=== PATIENT | female | born 2000 | race Caucasian/White ===

== ENCOUNTER 2022-10-23 16:34 | Emergency (ER) | payer MEDICAID, SELFPAY ==
--- NOTE | ~2022-10-23 | XR_ITS ---
XR knee RT min 4V DATE: 10/23/2022 18:00 INDICATION: Pain for 3 days. No known injury. TECHNIQUE: 4 views COMPARISON: None FINDINGS: No fracture or dislocation or joint effusion. No periosteal reaction or bone destruction. J oint spaces are preserved. No radiopaque intra-articular loose body or chondrocalcinosis. IMPRESSION: Negative Reviewed, dictated and finalized at location A. IMPRESSION: Negative
[2022-10-23 16:35] VITALS: BP 104/62; PULSE 66; RESP 16; TEMP 36.8; O2SAT 100
[2022-10-23 19:18] VITALS: BP 126/76; PULSE 70; RESP 18; O2SAT 98
--- NOTE | 2022-10-23 19:52 | ED.LOWEXIN ---
HPI - Extremity Injury (Lower) General Chief Complaint: Extremity Injury, Lower Stated Complaint: RIGHT KNEE INJURY Time Seen by Provider: 10/23/22 19:33 Source: patient and RN notes reviewed Mode of arrival: ambulatory Limitations: no limitations History of Present Illness HPI Narrative: This is a 21 year old female with history of knee tendonitis who presents for evaluation of right knee pain. She noticed mild right knee pain last Wednesday while working. 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 She reports she started applying ice and wearing knee immobilizer, and her pain improved. She states today her significant other asked her to straighten her right leg at the knee and she had worsening pain. Her pain is located lateral anterior knee. She denies calf pain . She denies swelling or redness. She has not taken any medication for her pain. Related Data Allergies Allergy/AdvReac Type Severity Reaction Status Date / Time No Known Allergies Allergy Verified 10/23/22 19:18 Review of Systems Review of Systems: All systems reviewed & are unremarkable except as noted in HPI and below PMFSH Past Medical History Medical History (Updated 10/23/22 @ 20:01 by Joan Muñoz MD) Tendonitis Surgical History Surgical History (Updated 10/23/22 @ 19:57 by Joan Muñoz MD) No pertinent past surgical history Social History Social History (Updated 10/23/22 @ 19:58 by Joan Muñoz MD) Smoking status: Never smoker Exam Const: General: no acute distress and alert Nutritional Appearance: well nourished Orientation/consciousness: patient oriented x3 Limitations: no limitations HENMT: Head: normal to inspection Eyes: EOM: EOMs intact bilaterally Resp: Effort & Inspection: normal respiratory effort Skin: General skin exam: normal color Rashes: no rashes Wounds: no wounds Neuro: General: patient oriented x3 and moves all extremities Extrem: Other: right anterior knee pain, no swelling, no increased warmth, no redness. pain with extension of knee Psych: Mental Status: mental status grossly normal Affect: normal affect Attitude: cooperative Course Reevaluation(s) Reevaluation #1: I Discussed with patient that knee xray did not show any thing acute. I Discussed management with NSAIDS , knee brace and she will need to follow up with PCP. Date: 10/23/22 Time: 19:59 Vital Signs Vital signs: Vital Signs Temperature 98.3 F 10/23/22 16:35 Pulse Rate 66 10/23/22 16:35 Respiratory Rate 16 10/23/22 16:35 Blood Pressure 104/62 10/23/22 16:35 Pulse Oximetry 100 10/23/22 16:35 Temperature 98.3 F 10/23/22 16:35 Pulse Rate 70 10/23/22 19:18 Respiratory Rate 18 10/23/22 19:18 Blood Pressure 126/76 10/23/22 19:18 Pulse Oximetry 98 10/23/22 19:18 MDM - Extremity Injury (Lower) Imaging Data Radiologist's impression: ITS Impressions Knee X-Ray 10/23/22 18:09 IMPRESSION: Negative Discharge Plan Discharge Clinical Impression: Acute pain of right knee Patient Disposition: Home, Self-Care Condition: Stable Instructions: Antibiotic Form, Knee Pain (ED) Additional Instructions: wear your knee brace for comfort. Take naproxen, aleve or ibuprofen for your pain. Follow up with your primary care provider for further care of your knee Prescriptions: New naproxen 375 mg tablet 375 mg PO BID PRN (Reason: pain) Qty: 14 0RF Follow-up/Referrals: Keyana Messina MD [Physician] -
== END 2022-10-23 20:17 | disposition home or self-care (01) ==
PROVIDERS: Emergency Provider General Practice
DX: M25.561 Pain in right knee (principal)
CPT/HCPCS: 73564; 99283

== ENCOUNTER 2023-07-28 17:42 | Emergency (ER) | payer SELFPAY ==
[2023-07-28 17:54] VITALS: BP 106/64; PULSE 129; RESP 16; TEMP 37.1; O2SAT 98
--- NOTE | 2023-07-28 18:10 | ED.EAR ---
HPI - Ear Problem General Chief complaint: Ear Stated complaint: Right Ear Irritation Time Seen by Provider: 07/28/23 18:15 Source: patient and RN notes reviewed Mode of arrival: ambulatory Limitations: no limitations History of Present Illness HPI Narrative: 22-year-old female presents concern for your pain on the right side. Reports that she had been sick for about 1-2 weeks of nasal congestion and rhinorrhea which has mostly does resolved but now she has right ear pain. Reports she has been taking DayQuil and Mucinex MD Complaint: ear pain Related Data Allergies Allergy/AdvReac Type Severity Reaction Status Date / Time No Known Allergies Allergy Verified 07/28/23 18:06 Review of Systems Review of Systems: CONSTITUTIONAL: Denies malaise, chills, sweats, or fever. EYES: Denies visual changes, redness, or discharge. ENT: Denies rhinorrhea, congestion, sinus pain, and sore throat. Reports right ear pain CARDIOVASCULAR: Denies chest pain, palpitations, or edema. RESPIRATORY: Denies cough. Denies dyspnea. GASTROINTESTINAL: Denies abdominal pain, nausea, vomiting, diarrhea SKIN: Denies rash or itching. MUSCULOSKELETAL: Denies myalgia. NEUROLOGIC: Denies headache. All systems reviewed & are unremarkable except as noted in HPI and below PMFSH Past Medical History Medical History (Updated 07/28/23 @ 18:22 by Magy Crowell NP) Tendonitis Surgical History Surgical History (Updated 10/23/22 @ 19:57 by Joan Muñoz MD) No pertinent past surgical history Social History Social History (Updated 10/23/22 @ 19:58 by Joan Muñoz MD) Smoking status: Never smoker Comments At time of signature, agree with nursing past medical, surgical, social and family history. There is no relevant family history pertinent to the presenting complaint Exam Narrative: GENERAL: Well-appearing, well-nourished, and in no acute distress. HEAD: Normocephalic EYES: PERRLA, conjunctivae clear ENT: Nares clear. Mucous membranes moist. TM pearly swenson with dull light reflex on the left, erythematous and bulging on the right; no tragal tenderness. Oropharynx not erythematous without lesions. Tonsils not enlarged and without exudate, no drooling, no hoarseness, no trismus, uvula midline. NECK: Supple. No lymphadenopathy CHEST: Clear to auscultation, breath sounds equal. No wheezing, rhonchi, rales, or stridor. No respiratory distress, speaks in full sentences. HEART: Regular rate and rhythm. No murmur heard. SKIN: Warm, dry, no rash. NEURO: Alert and oriented x3. PSYCH: Normal mood and affect Course Course Emergency Course: Patient is aware of diagnosis, understands and agrees to treatment plan. Anticipatory guidance given. Patient agrees to follow-up as directed and is aware of reasons to seek care at the emergency department. Portions of this record may have been created with voice recognition software Level of Care: Express Care Visit Vital Signs Vital signs: Vital Signs Temperature 98.8 F 07/28/23 17:54 Pulse Rate 129 H 07/28/23 17:54 Respiratory Rate 16 07/28/23 17:54 Blood Pressure 106/64 07/28/23 17:54 Pulse Oximetry 98 07/28/23 17:54 Oxygen Delivery Room Air 07/28/23 17:54 Temperature 98.8 F 07/28/23 17:54 Pulse Rate 129 H 07/28/23 17:54 Respiratory Rate 16 07/28/23 17:54 Blood Pressure 106/64 07/28/23 17:54 Pulse Oximetry 98 07/28/23 17:54 Oxygen Delivery Room Air 07/28/23 17:54 Reviewed. Medical Decision Making MDM Narrative Medical decision making narrative: Differential diagnosis considered: Prather virus, strep pharyngitis, allergic rhinitis, upper respiratory tract infection, sinusitis, rhinosinusitis, nasopharyngitis. viral pharyngitis, otitis media, otitis externa, otitis effusion, cerumen impaction, foreign body. Exam findings show no acute concerns or changes; patient is non-toxic appearing and is in no distress. Patient is appropriate for outpatient
== END 2023-07-28 18:30 | disposition home or self-care (01) ==
PROVIDERS: Emergency Provider Nurse Practitioner
DX: H66.91 Otitis media, unspecified, right ear (principal)
CPT/HCPCS: 99213; G0463